=== PATIENT | female | born 1955 | race Caucasian/White ===

== ENCOUNTER 2016-08-22 10:12 | Emergency (ER) | payer BC ==
[2016-08-22 11:22] VITALS: BP 146/66
--- NOTE | 2016-08-22 12:13 | UC ---
Complaint Female HPI - HPI Summary HPI Summary: Woke this morning with burning and pressure in lower abd, now having painful urination and bladder cramping. Hx of UTIs, this feels like a UTI to pt. No fever, vomiting, or rash. - History Of Current Complaint Chief Complaint: UCGU Stated Complaint: URINARY ISSUE Time Seen by Provider: 08/22/16 12:01 Hx Obtained From: Patient ?: No Onset/Duration: Gradual Onset, Lasting Hours Timing: Constant Severity Initially: Mild Severity Currently: Moderate Aggravating Factor(s): Urination Associated Signs And Symptoms: Negative: Back Pain, Vaginal Bleeding/Discharge, Vaginal Discharge - Allergies/Home Medications Allergies/Adverse Reactions: Allergies Allergy/AdvReac Type Severity Reaction Status Date / Time Penicillins Allergy Unknown Verified 08/22/16 11:15 Reaction Details Sulfa Drugs Allergy Unknown Verified 08/22/16 11:15 Reaction Details Home Medications: Home Medications Estradiol 0.5 tab PO DAILY 08/22/16 [History Confirmed 08/22/16] PMH/Surg Hx/FS Hx/Imm Hx Endocrine History Of: Denies: Diabetes, Thyroid Disease, Hyperthyroidism, Hypothyroidism Cardiovascular History Of: Denies: Cardiac Disorders, Hypertension Respiratory History Of: Denies: COPD, Asthma GI/ History Of: Denies: Ulcer Cancer History Of: Denies: Breast Cancer - Surgical History Surgical History: Yes Surgery Procedure, Year, and Place: hemilaminectomy 2006. Hysterectomy. colectomy benign. ectopic . breast biopsy - Family History Known Family History: Positive: None - Social History Lives: With Family Alcohol Use: Occasionally Substance Use Type: None Smoking Status (MU): Never Smoked Tobacco Review of Systems Constitutional: Negative Skin: Negative Eyes: Negative ENT: Negative Respiratory: Negative Cardiovascular: Negative Gastrointestinal: Negative Genitourinary: Dysuria, Frequency, Urgency Motor: Negative Neurovascular: Negative Musculoskeletal: Negative Neurological: Negative Psychological: Negative All Other Systems Reviewed And Are Negative: Yes Physical Exam Triage Information Reviewed: Yes Appearance: Well-Appearing, No Pain Distress, Well-Nourished Vital Signs: Initial Vital Signs Temp 97 F 08/22/16 11:17 Resp 16 08/22/16 11:17 BP 146/66 08/22/16 11:17 Pulse Ox 98 08/22/16 11:17 Vital Signs Reviewed: Yes Eye Exam: Normal Eyes: Positive: Conjunctiva Clear ENT Exam: Normal ENT: Positive: Normal ENT inspection, Hearing grossly normal, Pharynx normal Dental Exam: Normal Neck exam: Normal Neck: Positive: Supple, Nontender, No Lymphadenopathy Respiratory Exam: Normal Respiratory: Positive: Chest non-tender, Lungs clear, Normal breath sounds, No respiratory distress, No accessory muscle use Cardiovascular Exam: Normal Cardiovascular: Positive: RRR, No Murmur Abdomen Description: Negative: CVA Tenderness (R), CVA Tenderness (L) Musculoskeletal Exam: Normal Neurological Exam: Normal Neurological: Positive: Alert Psychological Exam: Normal Skin Exam: Normal Complaint Female Dx - Differential Dx/Diagnosis Provider Diagnoses: UTI Discharge - Discharge Plan Condition: Stable Disposition: HOME Prescriptions: Nitrofurantoin Monohyd Macro [Macrobid] 100 mg PO BID #10 cap Phenazopyridine 200 mg (NF) [Pyridium 200 MG tab] 200 mg PO TID PRN #3 tab PRN Reason: pain Patient Education Materials: Urinary Tract Infection in Women (ED) Referrals: Grey Wood MD [Primary Care Provider] - Additional Instructions: Call or return if you do not have clear improvement in the next 48 hours.
== END 2016-08-22 12:14 | disposition home or self-care (01) ==
LOC: UCEAST 10:12
DX: N39.0 Urinary tract infection, site not specified (principal); Z87.440 Personal history of urinary (tract) infections; Z90.710 Acquired absence of both cervix and uterus; Z88.0 Allergy status to penicillin; Z88.2 Allergy status to sulfonamides
CPT/HCPCS: 81003; 87077; 87086; 87186; 99212; G0463

== ENCOUNTER 2017-10-12 19:10 | Emergency (ER) | payer BC ==
[2017-10-12 19:23] VITALS: BP 149/69
--- NOTE | 2017-10-12 19:33 | ED ---
Throat Pain/Nasal Congestion - HPI Summary HPI Summary: 61-year-old female presents with right ear pain for the past 3 days. She states that where her earring is started to notice a rash. States since spread into her ear. She admits to some muffled hearing. she also states that she is pain inside her ear. She states that her neck feels swollen. She does not have a history of ear infections. No sinus congestion. no recent illness. She is not diabetic. She is nonsmoker. - History of Current Complaint Chief Complaint: UCEar Time Seen by Provider: 10/12/17 19:23 - Allergies/Home Medications Allergies/Adverse Reactions: Allergies Allergy/AdvReac Type Severity Reaction Status Date / Time Penicillins Allergy Rash Verified 10/12/17 19:24 Sulfa (Sulfonamide Allergy Rash Verified 10/12/17 19:24 Antibiotics) PMH/Surg Hx/FS Hx/Imm Hx Endocrine/Hematology History: Denies: Hx Diabetes, Hx Thyroid Disease, Hx Anemia Cardiovascular History: Denies: Hx Hypertension Respiratory History: Denies: Hx Asthma, Hx Chronic Obstructive Pulmonary Disease (COPD) GI History: Denies: Hx Jaundice, Hx Ulcer - Cancer History Hx Chemotherapy: No Hx Radiation Therapy: No - Surgical History Surgery Procedure, Year, and Place: hemilaminectomy 2006. Hysterectomy. colectomy benign. ectopic . breast biopsy Infectious Disease History: No Infectious Disease History: Reports: Hx Shingles Denies: Hx Clostridium Difficile, Hx Hepatitis, Hx Human Immunodeficiency Virus (HIV), Hx of Known/Suspected MRSA, Hx Tuberculosis, Hx Known/Suspected VRE , Hx Known/Suspected VRSA, History Other Infectious Disease, Traveled Outside the [place] in Last 30 Days - Family History Known Family History: Positive: None - Social History Alcohol Use: Occasionally Substance Use Type: Reports: None Smoking Status (MU): Never Smoked Tobacco Review of Systems Negative: Fever Positive: Ear Ache Negative: Chest Pain Negative: Shortness Of Breath All Other Systems Reviewed And Are Negative: Yes Physical Exam Triage Information Reviewed: Yes Vital Signs On Initial Exam: Initial Vitals Temp Pulse Resp BP Pulse Ox 97.5 F 73 18 149/69 94 10/12/17 19:19 10/12/17 19:19 10/12/17 19:19 10/12/17 19:19 10/12/17 19:19 Vital Signs Reviewed: Yes Skin: Positive: Warm, Dry Head/Face: Positive: Normal Head/Face Inspection Eyes: Positive: Normal, EOMI, PATIENCE, Conjunctiva Clear ENT: Positive: Pharynx normal, TM bulging - right, TM red - right, Other - external ear erythematous right, TM erythemaotus Neck: Positive: Tenderness @ - cervical, Enlarged Nodes @ - cervical. Negative : Nuchal Rigidity Respiratory/Lung Sounds: Positive: Clear to Auscultation, Breath Sounds Present Cardiovascular: Positive: Normal, RRR Abdomen Description: Positive: Nontender, Soft Bowel Sounds: Positive: Present Musculoskeletal: Positive: Normal Neurological: Positive: Normal Psychiatric: Positive: Normal Diagnostics - Vital Signs Vital Signs Temp Pulse Resp BP Pulse Ox 10/12/17 19:19 97.5 F 73 18 149/69 94 - Laboratory Lab Statement: Any lab studies that have been ordered have been reviewed, and results considered in the medical decision making process. EENT Course/Dx - Course Course Of Treatment: 61-year-old female presents with right ear pain for the past 3 days. She states that where her earring is started to notice a rash. States since spread into her ear. She admits to some muffled hearing. she also states that she is pain inside her ear. She states that her neck feels swollen. She does not have a history of ear infections. No sinus congestion. no Recent illness. She is not diabetic. She is nonsmoker. on exam right ear is warm and erythematous. canal is edematous and erythematous. TM is red and bulging. may be a cellulitis that has turned into ear infection. will treat with cefidinir as will give skin coverage for potential cellulitis. will also use ciprodex for otitis externa. will have follow up with primary as blood pressure is elevated at this visit. patient understand and agrees with plan. - Differential Diagnoses Differential Diagnoses: Otitis Externa, Otitis Media, URI/Bronchitis - Diagnoses Provider Diagnoses: Otitis externa, Otitis media, Elevated blood pressure reading Discharge - Sign-Out/Discharge Documenting (check all that apply): Discharge/Admit/Transfer - Discharge Plan Condition: Good Disposition: HOME Prescriptions: Cefdinir cap (NF) [Cefdinir 300 MG cap (NF)] 300 mg PO BID #20 cap Ciproflox/Dexameth OTIC.SUSP* [Ciprodex Otic*] 4 drop OTIC BID #1 bottle Patient Education Materials: Otitis Externa (ED) Referrals: Grey Wood MD [Primary Care Provider] - Additional Instructions: Use ciprodex 4 drops twice a day for 7 days take antibiotic twice a day for 10 days Follow up with primary in 5 days to make sure resolving Return to ED if develop any new or worsening symptoms - Billing Disposition and Condition Condition: GOOD Disposition: Home
== END 2017-10-12 19:40 | disposition home or self-care (01) ==
LOC: UCEAST 19:10
DX: H60.91 Unspecified otitis externa, right ear (principal); H66.91 Otitis media, unspecified, right ear; R03.0 Elevated blood-pressure reading, without diagnosis of hypertension; Z88.2 Allergy status to sulfonamides; Z88.0 Allergy status to penicillin
CPT/HCPCS: 99212; G0463

== ENCOUNTER 2021-05-18 14:14 | Observation (INO) ==
[2021-05-18 15:08] LABS: ABS Eosinophils 0.1 10^3/ul (0-0.6); ABS Lymphocytes 1.3 10^3/ul (1.0-4.8); ABS Monocytes 0.5 10^3/ul (0-0.8); ABS Neutrophils 5.1 10^3/ul (1.5-7.7); Eosinophil % 0.9 %; Hematocrit 43 % (35-47); Hemoglobin 14.4 g/dL (12.0-16.0); Lymphocyte % 18.7 %; Mean Corpuscular HGB Conc 34 g/dL (31-36); Mean Corpuscular Hemoglobin 31 pg (27-31); Mean Corpuscular Volume 93 fL (80-97); Mean Platelet Volume 8.1 fL (7.4-10.4); Nucleated Red Blood Cells % 0.1; Platelet Count 268 10^3/uL (150-450); Red Blood Count 4.62 10^6 /uL (3.70-4.87); Red Cell Distribution Width 13 % (10-15)
[2021-05-18 15:29] LABS: ALT 16 U/L (7-52); Albumin 3.8 g/dL (3.2-5.2); Albumin/Globulin Ratio 1.5 (1-3); Alkaline Phosphatase 95 U/L (35-149); Blood Urea Nitrogen 16 mg/dL (6-24); CO2 Carbon Dioxide 24 mmol/L (22-32); Calcium 8.5 mg/dL (8.6-10.3); Chloride 110 mmol/L (101-111); Globulin 2.5 g/dL (2-4); Glucose 90 mg/dL (70-100); Lipase 27 U/L (11.0-82.0); Sodium 138 mmol/L (135-145); Total Protein 6.3 g/dL (6.4-8.9); eGFR CKD-EPI 97.9 (>60)
[2021-05-18 15:47] LABS: Anion Gap 4 mmol/L (2-11)
[2021-05-18] MEDS ORDERED: Al Hydrox/Mg Hydrox/Simet LIQ 30 ML UDC PO PRN (16:46)
[2021-05-18 22:30] LABS: Magnesium 2.1 mg/dL (1.9-2.7); Potassium 4.1 mmol/L (3.5-5.0)
[2021-05-18 23:01] LABS: TSH Ultra Thyroid Stim Horm 1.91 mcIU/mL (0.34-5.60)
[2021-05-19] MEDS ORDERED: Enoxaparin 40 MG/0.4 ML SYR SUBCUT SCH (06:00)
[2021-05-19 06:25] LABS: ABS Eosinophils 0.1 10^3/ul (0-0.6); ABS Lymphocytes 1.7 10^3/ul (1.0-4.8); ABS Monocytes 0.5 10^3/ul (0-0.8); ABS Neutrophils 4.5 10^3/ul (1.5-7.7); Eosinophil % 1.5 %; Hematocrit 42 % (35-47); Lymphocyte % 25.2 %; Mean Corpuscular HGB Conc 33 g/dL (31-36); Mean Corpuscular Hemoglobin 31 pg (27-31); Mean Corpuscular Volume 93 fL (80-97); Mean Platelet Volume 8.2 fL (7.4-10.4); Platelet Count 273 10^3/uL (150-450); Red Blood Count 4.53 10^6 /uL (3.70-4.87); Red Cell Distribution Width 13 % (10-15); White Blood Count 6.9 10^3/uL (3.5-10.8)
[2021-05-19 06:45] LABS: Blood Urea Nitrogen 17 mg/dL (6-24); CO2 Carbon Dioxide 29 mmol/L (22-32); Calcium 9.2 mg/dL (8.6-10.3); Chloride 104 mmol/L (101-111); Cholesterol 166 mg/dL; Glucose 98 mg/dL (70-100); HDL Cholesterol 45.3 mg/dL; LDL Cholesterol 103 mg/dL; Sodium 138 mmol/L (135-145); Triglycerides 88 mg/dL; eGFR CKD-EPI 71.4 (>60)
[2021-05-19 06:54] LABS: Anion Gap 5 mmol/L (2-11)
[2021-05-19 08:16] LABS: Magnesium 2.2 mg/dL (1.9-2.7); Potassium Redraw 4.3 mmol/L (3.5-5.0)
[2021-05-19] MEDS ORDERED: METRONIDAZOLE 1% TOPICAL SCH (09:00)
[2021-05-19] MEDS ORDERED: Aspirin EC 81 mg TAB.EC (enteric coated) PO SCH (09:00)
[2021-05-19] MEDS ORDERED: CALCIUM CARBONATE VITAMIN D3 PO SCH (09:00)
[2021-05-19] MEDS ORDERED: Multivitamins/Minerals TAB PO SCH (09:00)
[2021-05-19 12:11] VITALS: BP 151/69
[2021-05-20] MEDS ORDERED: Calcium/Vitamin D TAB 250/125 TAB PO SCH (09:00)
== END 2021-05-19 12:59 | disposition home or self-care (01) ==
LOC: ED 14:14 → EDHOLD 16:18 → INTOOBSV 16:18 → MEDTELE 17:18
PROVIDERS: ADMIT Student in an Organized Health Care Education/Training Program; ATTEND Internal Medicine